=== PATIENT | female | born 1990 | race American Indian/Alaskan Native ===

== ENCOUNTER 2016-12-14 08:36 | Emergency (ER) | payer OTHER ==
[2016-12-14 10:49] LABS: Basophils % (Auto) 0.7 % (0.0-1.8); Eosinophils % (Auto) 0.7 % (0.0-4.3); Hematocrit 37.3 % (30.3-42.9); Hemoglobin 12.1 gm/dl (10.1-14.3); Mean Corpuscular HGB Conc 33 % (30-34); Mean Corpuscular Hemoglobin 26 pg (28-32); Mean Corpuscular Volume 80 fl (79-97); Platelet Count 384 K/mm3 (140-440); Red Blood Count 4.66 M/mm3 (3.65-5.03); Red Cell Distribution Width 13.9 % (13.2-15.2); White Blood Count 8.9 K/mm3 (4.5-11.0)
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
[2016-12-14 11:04] LABS: Anion Gap 15 mmol/L; Blood Urea Nitrogen 5 mg/dL (7-17); Calcium 9.3 mg/dL (8.4-10.2); Carbon Dioxide 23 mmol/L (22-30); Chloride 100.1 mmol/L (98-107); Glucose 96 mg/dL (65-100); Potassium 3.9 mmol/L (3.6-5.0); Sodium 134 mmol/L (137-145)
[2016-12-14 11:06] LABS: Alanine Aminotransferase 10 units/L (7-56); Albumin 3.6 g/dL (3.9-5); Alkaline Phosphatase 51 units/L (35-129); Bilirubin,Total 0.2 mg/dL (0.1-1.2); Total Protein 7.1 g/dL (6.3-8.2)
[2016-12-14 11:13] LABS: Bilirubin,Direct < 0.2 mg/dL (0-0.2)
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
[2016-12-14 12:12] VITALS: BP 124/76
== END 2016-12-14 12:17 | disposition home or self-care (01) ==
LOC: ED 08:36
DX: O9A.212 Injury, poisoning and certain other consequences of external causes complicating pregnancy, second trimester (principal); S30.0XXA Contusion of lower back and pelvis, initial encounter; R10.9 Unspecified abdominal pain; Z91.040 Latex allergy status; Z3A.14 14 weeks gestation of pregnancy; V89.2XXA Person injured in unspecified motor-vehicle accident, traffic, initial encounter; Y93.89 Activity, other specified; Y99.9 Unspecified external cause status; Y92.410 Unspecified street and highway as the place of occurrence of the external cause
CPT/HCPCS: 36415; 76805; 76817; 80048; 80074; 85025; 85460